=== PATIENT | male | born 1990 | race African-American/Black ===

== ENCOUNTER 2021-04-25 07:25 | Emergency (ER) | payer OTHER ==
[~2021-04-25] VITALS: Ht 198.1 cm; Wt 83.0 kg
[2021-04-25] MEDS ORDERED: HYDROCODONE/ACETAMINOPHEN 5/325MG TABLET PO ONE (08:45)
[2021-04-25 10:17] VITALS: BP 134/68
== END 2021-04-25 10:19 | disposition home or self-care (01) ==
LOC: ER 07:25
DX: S92.252A Displaced fracture of navicular [scaphoid] of left foot, initial encounter for closed fracture (principal); W05.1XXA Fall from non-moving nonmotorized scooter, initial encounter; Y93.89 Activity, other specified; Y92.89 Other specified places as the place of occurrence of the external cause; Y99.8 Other external cause status
CPT/HCPCS: 29125; 73110; 99283